=== PATIENT | male | born 1980 | race Caucasian/White ===

== ENCOUNTER 2020-10-08 09:21 | Emergency (ER) | payer OTHER ==
[~2020-10-08] VITALS: Ht 193 cm; Wt 111.4 kg
[2020-10-08] MEDS ORDERED: CEPHALEXIN500 M1 PO (11:38)
[2020-10-08 12:00] VITALS: BP 128/64; PULSE 72; TEMP 98.3
== END 2020-10-08 12:02 | disposition home or self-care (01) ==
LOC: COL.ER 09:21
DX: S61.442A Puncture wound with foreign body of left hand, initial encounter (principal); F17.210 Nicotine dependence, cigarettes, uncomplicated; W45.0XXA Nail entering through skin, initial encounter